=== PATIENT | male | born 1995 | race Caucasian/White ===

== ENCOUNTER 2016-12-04 12:31 | Emergency (ER) | payer OTHER ==
[2016-12-04 12:39] VITALS: BP 111/70
--- NOTE | 2016-12-04 12:55 | UC ---
Eye Complaint HPI - HPI Summary HPI Summary: left eye lid swollen with "jett discharge" this morning--feels itchy irritated , does not wear contact lens no visual deficits- - History of Current Complaint Chief Complaint: UCEye Stated Complaint: EYE IRRITATION Time Seen by Provider: 12/04/16 12:48 Hx Obtained From: Patient Onset/Duration: Sudden Onset, Lasting Days - 1 Timing: Constant Severity Initially: Mild Severity Currently: Mild Location of Injury: Eye Lid (lower), Eye Lid (upper) Aggravating Factor(s): Nothing Alleviating Factor(s): Nothing Associated Signs And Symptoms: Positive: Drainage (Purulent) - some crusty drainage overnight - Allergies/Home Medications Allergies/Adverse Reactions: Allergies Allergy/AdvReac Type Severity Reaction Status Date / Time Penicillins [PCN] Allergy Rash Verified 12/04/16 12:36 PMH/Surg Hx/FS Hx/Imm Hx Previously Healthy: Yes - Surgical History Surgical History: Yes Surgery Procedure, Year, and Place: ta,pil cyst - Family History Known Family History: Positive: None - Social History Occupation: Student Lives: With Family Alcohol Use: None Substance Use Type: None Smoking Status (MU): Never Smoked Tobacco Review of Systems Constitutional: Negative Skin: Negative Eyes: Negative, Other - left eyelid swollen ENT: Negative Respiratory: Negative Cardiovascular: Negative Gastrointestinal: Negative Genitourinary: Negative Motor: Negative Neurovascular: Negative Musculoskeletal: Negative Neurological: Negative Psychological: Negative All Other Systems Reviewed And Are Negative: Yes Physical Exam Triage Information Reviewed: Yes Appearance: Well-Appearing, No Pain Distress, Well-Nourished Vital Signs: Initial Vital Signs Temp 98 F 12/04/16 12:37 Pulse 79 12/04/16 12:37 Resp 16 12/04/16 12:37 BP 111/70 12/04/16 12:37 Pulse Ox 100 12/04/16 12:37 Vital Signs Reviewed: Yes Eye Exam: Normal Eyes: Positive: Conjunctiva Clear, Other: - swelling without warmth or erythemaa left eye, perrla, eomi, no visual deficits ENT Exam: Normal ENT: Positive: Normal ENT inspection, Hearing grossly normal, Pharynx normal, Nasal drainage. Negative: Nasal congestion, Trismus, Muffled/hoarse voice Dental Exam: Normal Neck exam: Normal Neck: Positive: Supple, Nontender, No Lymphadenopathy Respiratory Exam: Normal Respiratory: Positive: Chest non-tender, No respiratory distress, No accessory muscle use Cardiovascular Exam: Normal Cardiovascular: Positive: RRR, Pulses Normal, Brisk Capillary Refill Musculoskeletal Exam: Normal Musculoskeletal: Positive: Strength Intact, ROM Intact, No Edema Neurological Exam: Normal Neurological: Positive: Alert, Muscle Tone Normal Psychological Exam: Normal Skin Exam: Normal Eye Complaint Course/Dx - Course Course Of Treatment: Zaditor eye drops, follow with [facility] prn - Differential Dx/Diagnosis Differential Diagnosis/HQI/PQRI: Conjunctivitis, Periorbital Cellulitis, Orbital Cellulitis, Other - allergic conjuctivitis Provider Diagnoses: Enviromental allergies Discharge - Discharge Plan Condition: Stable Disposition: HOME Prescriptions: Ketotifen Fumarate (Ophth) [Zaditor] 0.025 % OP BID #1 [id number] Patient Education Materials: Allergic Rhinitis (ED), Conjunctivitis (ED) Referrals: [facility] [Outside] - If Needed
== END 2016-12-04 13:17 | disposition home or self-care (01) ==
LOC: UCEAST 12:31
DX: T78.49XA Other allergy, initial encounter (principal); Z88.0 Allergy status to penicillin
CPT/HCPCS: 99202; G0463

== ENCOUNTER 2018-06-19 22:14 | Emergency (ER) | payer SELFPAY ==
[2018-06-19 22:25] VITALS: BP 110/71
--- NOTE | 2018-06-19 22:43 | ED ---
Bite Injury/Animal - HPI Summary HPI Summary: 22 year old M presenting to [facility] with a chief complaint of tick bite on his right flank since 24 hours ago. The patient rates the pain 0/10 in severity. Symptoms aggravated by nothing. Symptoms alleviated by nothing. Patient denies fever and bullseye rash. Patient went hiking yesterday afternoon but didn't notice the tick until 1.5 hours ago. Patient's roommate's girlfriend is EMS so she tried to remove tick 1 hour ago but was unsuccessful. Patient reports that he has had Lyme once when he was young. - History of Current Complaint Chief Complaint: EDAnimalBite Stated Complaint: I FOUND A HUGE TICK AND I WANNA GET IT OUT PER PT Time Seen by Provider: 06/19/18 22:33 Hx Obtained From: Patient Onset of Injury: Happened hours ago - 24, Still Present Type of Bite: Animal - Tick Severity Currently: None Pain Intensity: 0 Pain Scale Used: 0-10 Numeric Aggravating Factor(s): Nothing Alleviating Factor(s): Nothing Associated Signs And Symptoms: Positive: Negative - bullseye rash. Negative: Fever - Allergies/Home Medications Allergies/Adverse Reactions: Allergies Allergy/AdvReac Type Severity Reaction Status Date / Time Penicillins Allergy Rash Verified 06/19/18 22:22 Home Medications: Home Medications Dextroamphetamine/Amphetamine [Dextroamp-Amphetamin 20 mg Tab] 1 tab PO ONCE PRN 06/19/18 [History Confirmed 06/19/18] PMH/Surg Hx/FS Hx/Imm Hx Previously Healthy: No - Hx Lyme disease when younger Endocrine/Hematology History: Denies: Hx Diabetes Sensory History: Denies: Hx Contacts or Glasses Opthamlomology History: Denies: Hx Contacts or Glasses - Surgical History Surgery Procedure, Year, and Place: ta,pil cyst Infectious Disease History: No Infectious Disease History: Denies: Hx Clostridium Difficile, Hx Hepatitis, Hx Human Immunodeficiency Virus (HIV), Hx of Known/Suspected MRSA, Hx Shingles, Hx Tuberculosis, Hx Known/ Suspected VRE, Hx Known/Suspected VRSA, History Other Infectious Disease, Traveled Outside the [place] in Last 30 Days - Family History Known Family History: Negative: Hypertension - Social History Alcohol Use: None Hx Substance Use: No Substance Use Type: Reports: None Hx Tobacco Use: No Smoking Status (MU): Never Smoked Tobacco Review of Systems Negative: Fever Positive: Other - tick bite on his right flank . Negative: Rash All Other Systems Reviewed And Are Negative: Yes Physical Exam - Summary Physical Exam Summary: VITAL SIGNS: Reviewed. GENERAL: Patient is a well-developed and nourished male who is lying comfortable in the stretcher. Patient is not in any acute respiratory distress. HEAD AND FACE: No signs of trauma. No ecchymosis, hematomas or skull depressions. No sinus tenderness. EYES: PERRLA, EOMI x 2, No injected conjunctiva, no nystagmus. EARS: Hearing grossly intact. Ear canals and tympanic membranes are within normal limits. MOUTH: Oropharynx within normal limits. NECK: Supple, trachea is midline, no adenopathy, no JVD, no carotid bruit, no c- spine tenderness, neck with full ROM. CHEST: Symmetric, no tenderness at palpation LUNGS: Clear to auscultation bilaterally. No wheezing or crackles. CVS: Regular rate and rhythm, S1 and S2 present, no murmurs or gallops appreciated. ABDOMEN: Soft, non-tender. No signs of distention. No rebound no guarding, and no masses palpated. Bowel sounds are normal. EXTREMITIES: FROM in all major joints, no edema, no cyanosis or clubbing. NEURO: Alert and oriented x 3. No acute neurological deficits. Speech is normal and follows commands. SKIN: Patient has remnant tick in his right side that as removed with forceps. He does not have bullseye rash. Triage Information Reviewed: Yes Vital Signs On Initial Exam: Initial Vitals Temp Pulse Resp BP Pulse Ox 98.3 F 69 14 110/71 97 06/19/18 22:20 06/19/18 22:20 06/19/18 22:20 06/19/18 22:20 06/19/18 22:20 Vital Signs Reviewed: Yes Diagnostics - Vital Signs Vital Signs Temp Pulse Resp BP Pulse Ox 06/19/18 22:20 98.3 F 69 14 110/71 97 - Laboratory Lab Statement: Any lab studies that have been ordered have been reviewed, and results considered in the medical decision making process. Bite Injury Course/Dx - Course Course Of Treatment: 22 year old M presenting to [facility] with a chief complaint of tick bite on his right flank since 24 hours ago. Patient went hiking yesterday afternoon but didn't notice the tick until 1.5 hours ago. Patient's roommate's girlfriend is EMS so she tried to remove tick 1 hour ago but was unsuccessful. Patient's remnant tick was removed with forceps in ED. He did not have bullseye rash. Patient was instructed to get Lyme test in 6 weeks. He was instructed to return to ED for new or worsening symptoms especially if he develops bullseye rash. He is agreeable to discharge plan. - Diagnoses Provider Diagnosis: Tick bite Discharge - Sign-Out/Discharge Documenting (check all that apply): Patient Departure - Discharge Patient Received Moderate/Deep Sedation with Procedure: No - Discharge Plan Condition: Stable Disposition: HOME Patient Education Materials: Tick Bite (ED) Referrals: [facility] [Outside] - 07/31/18 Additional Instructions: Arrange a primary care provider so that you can follow up with Lyme Disease test in 6 weeks. Return to the Emergency Department for new or worsening symptoms, especially if you develop a bullseye rash. - Attestation Statements Document Initiated by Scribe: Yes Documenting Scribe: Ceci Murillo Provider For Whom Eunice is Documenting (Include Credential): Polly Kolb MD Scribe Attestation: Ceci Nino, scribed for Polly Kolb MD on 06/19/18 at [id number]. Status of Scribe Document: Ready
== END 2018-06-19 22:55 | disposition home or self-care (01) ==
LOC: ED 22:14
DX: S30.861A Insect bite (nonvenomous) of abdominal wall, initial encounter (principal); W57.XXXA Bitten or stung by nonvenomous insect and other nonvenomous arthropods, initial encounter; Y93.01 Activity, walking, marching and hiking; Y92.9 Unspecified place or not applicable; Z88.0 Allergy status to penicillin
CPT/HCPCS: 99281